=== PATIENT | female | born 2000 | race Two or more races ===

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

== ENCOUNTER 2020-01-17 13:41 | Emergency (ER) | payer MEDICAID ==
[~2020-01-17] VITALS: Ht 167.6 cm; Wt 68.9 kg
[~2020-01-17 13:41] MED LIST: DOCU-131 PO; HYDR-3240 PO
[2020-01-17 13:49] VITALS: BP 132/60
[2020-01-17] MEDS ORDERED: LIDOCAINE-MPF 1%, 5ML ONE ×2 (14:25→15:13)
[2020-01-17] MEDS ORDERED: LIDOCAINE-MPF 1%, 5ML INFIL ONE (14:30)
--- NOTE | 2020-01-17 15:15 | NUR ---
JAMES TORRE IN ROOM.
--- NOTE | 2020-01-17 15:40 | NUR ---
PT RESTING ON [employer] W/ CALL LIGHT IN REACH. RESP EVEN AND UNLABORED, LISA.
[2020-01-17] MEDS ORDERED: NEOSPORIN OINT. PKT 1 PACKET ONE ×2 (15:44→15:52)
--- NOTE | 2020-01-17 16:15 | NUR ---
Patient given discharge instructions and they have confirmed that they understand the instructions. Patient ambulatory with steady gait.
== END 2020-01-17 16:16 | disposition home or self-care (01) ==
LOC: ED 14:54
DX: L60.0 Ingrowing nail (principal); M79.662 Pain in left lower leg; M79.661 Pain in right lower leg
CPT/HCPCS: 11730; 11732; 99284

== ENCOUNTER 2020-04-20 15:32 | Emergency (ER) | payer MEDICAID ==
[~2020-04-20] VITALS: Ht 167.6 cm; Wt 65.5 kg
[2020-04-20 15:50] VITALS: BP 125/75
--- NOTE | 2020-04-20 16:31 | NUR ---
URINE COLLECTED/SENT TO LAB.
[2020-04-20 16:48] LABS: HCG UR SG 1.028 (1.003-1.030)
[2020-04-20 17:01] LABS: MICROSCOPIC INDICATED
== END 2020-04-20 18:04 | disposition home or self-care (01) ==
LOC: ED 17:55
DX: L24.5 Irritant contact dermatitis due to other chemical products (principal); R30.0 Dysuria; R11.0 Nausea
CPT/HCPCS: 81001; 81025; 87086; 99283